=== PATIENT | male | born 1960 | race African-American/Black ===

== ENCOUNTER 2019-10-04 12:44 | Emergency (ER) | payer OTHER ==
[~2019-10-04] VITALS: Ht 180.3 cm; Wt 83.9 kg
[2019-10-04] MEDS ORDERED: VALSARTAN-HCTZ1 EACH PO (13:41)
[2019-10-04] MEDS ORDERED: ESOMEPRAZOLE MA40 MG PO (13:42)
[2019-10-04] MEDS ORDERED: PROSCAR 5MG TABL5 M1 PO (13:42)
[2019-10-04] MEDS ORDERED: CHLORZOXAZONE250 M1 PO (13:43)
[2019-10-04] MEDS ORDERED: FLOMAX0.4 MG PO (13:44)
[2019-10-04] MEDS ORDERED: FLEXERIL PO (13:44)
[2019-10-04] MEDS ORDERED: IBUPROFEN 800800 M1 PO ×2 (14:38→14:41)
[2019-10-04] MEDS ORDERED: CENTANY30 GM TOP (14:38)
[2019-10-04] MEDS ORDERED: NORCO 5-325 TA1 EAC1 PO (14:38)
[2019-10-04 14:45] VITALS: BP 132/84
== END 2019-10-04 16:18 | disposition home or self-care (01) ==
LOC: M.ERS 12:44
DX: S16.1XXA Strain of muscle, fascia and tendon at neck level, initial encounter (principal); S39.012A Strain of muscle, fascia and tendon of lower back, initial encounter; S29.012A Strain of muscle and tendon of back wall of thorax, initial encounter; S80.812A Abrasion, left lower leg, initial encounter; I10 Essential (primary) hypertension; F17.200 Nicotine dependence, unspecified, uncomplicated; V89.2XXA Person injured in unspecified motor-vehicle accident, traffic, initial encounter; Y92.89 Other specified places as the place of occurrence of the external cause; Y93.89 Activity, other specified; Y99.8 Other external cause status